=== PATIENT | male | born 1970 | race Caucasian/White ===

== ENCOUNTER → 2021-04-21 09:18 | Outpatient (CLI) | payer BC, SELFPAY ==
--- NOTE | ~2021-04-21 | US_ITS ---
EXAMINATION: US soft tissue chest EXAM DATE: 04/21/2021 10:11 INDICATION: Localized swelling, mass and lump, trunk . TECHNIQUE: Multiple grayscale and Doppler images of the symptomatic right posterolateral back region were obtained (by a technologist who performed the scan) and subsequently reviewed. Correlation is ma nguyễn to Right rib x-ray same date FINDINGS: Scanning in the right posterolateral back palpable abnormality demonstrates sonographically homogeneo us, normal-appearing skin, subcutaneous fat, underlying musculature. No fluid collection or mass iden tified. IMPRESSION: 1. Unremarkable ultrasound exam. Reviewed, dictated and finalized at location A.
--- NOTE | ~2021-04-21 | XR_ITS ---
[id number] DATE: 04/21/2021 10:02 INDICATION: Thoracic contusion TECHNIQUE: PA chest. 3 views of the right ribs. COMPARISON: None FINDINGS: No right rib fracture is detected. Normal heart size. No hilar or mediastinal enlargement. The lungs are clear of infiltrate or consolid ation. No pleural effusion or pulmonary vascular congestion or pneumothorax. IMPRESSION: Negative right ribs Reviewed, dictated and finalized at Location A. Reviewed, dictated and finalized at location B. IMPRESSION: Negative right ribs
== END ==
PROVIDERS: PCP Physician Assistant; Visit Provider Physician Assistant
DX: S20.20XA Contusion of thorax, unspecified, initial encounter (principal); X58.XXXA Exposure to other specified factors, initial encounter; R22.2 Localized swelling, mass and lump, trunk
CPT/HCPCS: 71101; 76604

== ENCOUNTER 2021-04-26 02:56 | Day surgery (SDC) | payer BC, SELFPAY ==
[2021-04-13 14:10] VITALS: BMI 27.0
--- NOTE | 2021-04-25 14:04 | P.PNAN_ITS ---
Anes - Initial Pre Proc Eval Procedure: Operation Date: 04/26/21 11:00 Proposed Procedures p Screening Colonoscopy - Baltazar Farias MD Date/Time: 04/25/21 14:05 Surgeon: Baltazar Farias MD Pre Op Diagnosis: neoplasm screening Patient Data Age: 50 Gender: M Height: 1.88 m Weight: 95.5 kg Allergies Allergy/AdvReac Type Severity Reaction Status Date / Time No Known Allergies Allergy Verified 04/26/21 10:02 Home Medications Medication Instructions Recorded Confirmed Type No Home Medications 04/13/21 04/13/21 History Patient hx anesthesia problems: none Family hx anesthesia problems: none Results Review: All pre-operative results and documents have been reviewed as part of the pre-operative evaluation. [facility] Social History Social History (Updated 04/26/21 @ 10:15 by Jesus Vásquez DO) Smoking packs per day: 1 Smoking cigarettes per day: 20.0 Years smoked: 25 Smoking pack-years: 25.00 Tobacco type: cigarettes Alcohol use details: 3-4 beers/day Substance use: current Substance use type: marijuana Other substance usage details: 1 or 2 times a day. Living arrangements: with family Spiritual care concerns: No Anes - Eval Final PreProcedure Day of Procedure 04/25/21 14:05 Patient weight: overweight Heart: regular rate and rhythm Lungs: clear to auscultation and normal air movement Airway: Mallampati scale class II Neurological: alert and oriented Last oral intake: >/= 8 hours ASA classification: III Emergent: no Anesthetic plan: proceed Anesthesia type and monitoring: general GIVS and standard monitoring Results Review: All pre-operative results and documents have been reviewed as part of the pre-operative evaluation. Informed Consent: The patient's anesthetic plan and its attendant risks and benefits were discussed with the patient/family/POA. Questions were solicited and answers provided to the satisfaction of the patient/family/POA.
[2021-04-26 10:03] VITALS: BP 136/88; PULSE 82; RESP 18; TEMP 36.8; O2SAT 100
[2021-04-26] MEDS: LACTATED RINGERS 1,000 ML 150 ML IV CONT (10:15)
--- NOTE | 2021-04-26 10:34 | P.HP_ITS ---
History of Present Illness History of Present Illness Consent: Risks, benefits, and alternatives have been discussed and questions answered. Patient agrees to proceed with procedure. Chief complaint: neoplasm screening Narrative: Waylon Graham is a 50 year old male here for first screening colonoscopy Review of Systems Constitutional: Constitutional: Denies headache(s) and Denies weakness Eyes: Eyes: Denies blurry vision ENT: Reports Normal hearing present, Denies headache(s) and Denies neck pain Cardiovascular: Cardiovascular: Denies chest pain and Denies dyspnea Respiratory: Respiratory: Denies dyspnea Gastrointestinal: Gastrointestinal: Reports no additional gastrointestinal complaints Genitourinary: Genitourinary: Denies dysuria Musculoskeletal: Musculoskeletal: Denies neck pain Integumentary/Breasts: Skin/Breast: Denies dry skin Neurologic: Reports Normal hearing present, Denies headache(s) and Denies weakness Psychiatric: Psychiatric: Denies anxiety Endocrine: Endocrine: Denies change in body appearance Hematologic/Lymphatic: Hematologic/Lymphatic: Denies easy bleeding Allergic/Immunologic: Allergic/Immunologic: Denies urticaria [facility] Past Medical History Medical History (Updated 04/26/21 @ 10:35 by Baltazar Farias MD) Colon cancer screening Social History Social History (Updated 04/26/21 @ 10:15 by Jesus Vásquez DO) Smoking packs per day: 1 Smoking cigarettes per day: 20.0 Years smoked: 25 Smoking pack-years: 25.00 Tobacco type: cigarettes Alcohol use details: 3-4 beers/day Substance use: current Substance use type: marijuana Other substance usage details: 1 or 2 times a day. Living arrangements: with family Spiritual care concerns: No Meds Home Medications and Allergies Home Medications Medication Instructions Recorded Confirmed Type No Home Medications 04/13/21 04/13/21 History Allergies Allergy/AdvReac Type Severity Reaction Status Date / Time No Known Allergies Allergy Verified 04/26/21 10:02 Vital Signs Vital Signs - 24 hr 04/26/21 10:03 Temperature 98.2 F Pulse Rate 82 Respiratory Rate 18 Blood Pressure 136/88 Pulse Oximetry 100 Exam Const: General: comfortable and no acute distress HENMT: General nose exam: Normal nares present Eyes: General: appearance normal, both eyes and all related structures Neck: Neck: no JVD Resp: Auscultation: clear to auscultation bilaterally Cardio: Rate: regular rate Rhythm: regular rhythm GI: Inspection: non-distended GI Palp: Yes Soft to palpation Skin: General skin exam: normal color Neuro: General: gait normal Speech: normal speech Extrem: General: normal to inspection Psych: Mental Status: mental status grossly normal Assessment and Plan Assessment and plan (1) Colon cancer screening: Code(s): Z12.11 - Encounter for screening for malignant neoplasm of colon Status: Acute Assessment and Plan: colonoscopy
[2021-04-26 10:59] VITALS: BP 121/85; PULSE 74; RESP 19; O2SAT 96
[2021-04-26 11:09] VITALS: BP 151/96; PULSE 70; RESP 16; O2SAT 100
[2021-04-26 11:19] VITALS: BP 165/98; PULSE 66; RESP 12; O2SAT 99
== END 2021-04-26 11:31 | disposition home or self-care (01) ==
PROVIDERS: PCP Physician Assistant; Visit Provider Internal Medicine Gastroenterology
PROC: 0DJD8ZZ Inspection of Lower Intestinal Tract, Via Natural or Artificial Opening Endoscopic (ICD-10-PCS; CPT 45378; principal; 2021-04-26 11:00)
DX: Z12.11 Encounter for screening for malignant neoplasm of colon (principal); K63.5 Polyp of colon; D12.2 Benign neoplasm of ascending colon; F17.210 Nicotine dependence, cigarettes, uncomplicated; F12.90 Cannabis use, unspecified, uncomplicated
CPT/HCPCS: 45385; 88305; J2001; J2704; J7120

== ENCOUNTER → 2021-05-24 07:46 | Outpatient (CLI) | payer BC, SELFPAY ==
--- NOTE | ~2021-05-24 | CT_ITS ---
EXAMINATION: CT lung screening EXAM DATE: 05/24/2021 08:17 INDICATION: Tobacco user. TECHNIQUE: Spiral low dose CT of the chest without contrast. Axial, coronal and sagittal images were reviewed. The dose-length product (DLP) for this examination was 143.12 mGy-cm. The exposure was t ailored according to patient size (auto mA exposure control), and iterative reconstruction (ASIR) was used as additional dose reduction technique. There is no prior study for comparison. FINDINGS: The lungs are clear. Mild emphysema. Tracheobronchial tree is patent. There is no medias tinal, hilar or axillary lymphadenopathy. There are no pleural or pericardial effusions. There is no pneumothorax. Heart normal in size. No evidence of coronary arterial calcification. Upper abd omen is unremarkable. There is thoracic spondylosis without osteoblastic or osteolytic lesions iden tified. IMPRESSION: Lung-RADS category 1, negative (<1%chance of malignancy); recommend continued LDCT screen ing in 1 year. > Reviewed, dictated and finalized at location A. IMPRESSION: Lung-RADS category 1, negative (<1%chance of malignancy); recommend continued LDCT screening in 1 year. >
== END ==
PROVIDERS: PCP Physician Assistant; Visit Provider Physician Assistant
DX: Z72.0 Tobacco use (principal)
CPT/HCPCS: 71271

== ENCOUNTER 2023-12-30 09:19 | Outpatient (CLI) | payer OTHER, SELFPAY ==
--- NOTE | ~2023-12-30 | US_ITS ---
Neck ULTRASOUND (Doppler ultrasound interrogation techniques used as needed for this exam.) Ordering provider: Mima Pelayo, FRANKIE History: . Cervical lymphadenopathy . Comparison: None. FINDINGS/impression: Multiple small lymph nodes are seen in both sides of the neck. The largest measures on the right side 1.7 cm and on the left 1.2 cm. Reviewed, dictated and finalized at location A.
--- NOTE | ~2023-12-30 | CT_ITS ---
CT sinus wo con Ordering provider: Mima Pelayo, PAVon History: . Congestion of nasal sinus . Comparison: None. Technique: Thin slice Scans CT of the paranasal sinuses was performed with coronal and sagittal refor matted images. No IV contrast. Radiation reduction technique utilized. Findings: NASAL SEPTUM: midline. OSTEOMEATAL UNITS: Bilaterally patent. NASAL TURBINATES AND NASOPHARYNX: Normal. PARANASAL SINUSES: Well aerated. VISUALIZED MASTOIDS: Minimal opacification anteriorly in the left mastoid air cells. Otherwise, Steff l as visualized. BONES: Normal. SUPERFICIAL SOFT TISSUES/VISUALIZED BRAIN PARENCHYMA: Rounded small soft tissue density seen anterior to the right maxillary sinus. Clinical evaluation advised. Otherwise,,Normal. IMPRESSION: No significant abnormality. Small rounded subcutaneous soft tissue density anterior to the right maxillary sinus. Reviewed, dictated and finalized at location A.
== END 2023-12-30 09:20 ==
LOC: MICIMG 09:22
PROVIDERS: PCP Physician Assistant; Visit Provider Physician Assistant
DX: R09.81 Nasal congestion (principal); R59.0 Localized enlarged lymph nodes
CPT/HCPCS: 70486; 76536

== ENCOUNTER 2024-01-20 08:17 | Outpatient (CLI) | payer OTHER, SELFPAY ==
--- NOTE | ~2024-01-20 | CT_ITS ---
EXAMINATION: CT soft tissue neck w con DATE: 01/20/2024 08:38 INDICATION: Cervical lymphadenopathy. TECHNIQUE: Computed tomography (CT) of the neck was performed with 75 mL Omnipaque-350 intravenous co ntrast. Automated exposure control and iterative reconstruction technique were employed. The dose-jacque gth product was 436.73 mGy-cm. COMPARISON: Ultrasound 12/30/2023 FINDINGS: There are no pathologically enlarged lymph nodes. There is mild plaque in the proximal righ t internal carotid artery. There is 0% stenosis of the proximal internal carotid arteries relative to normal distal artery lumen diameters. There is a 9 mm subcutaneous mass in the right cheek, likely a sebaceous cyst. There is mild cervical spondylosis. IMPRESSION: 1. No abnormal cervical lymphadenopathy. Reviewed, dictated and finalized at location A.
== END 2024-01-20 08:18 ==
LOC: MICIMG 08:19
PROVIDERS: PCP Physician Assistant; Visit Provider Physician Assistant
DX: R59.0 Localized enlarged lymph nodes (principal)
CPT/HCPCS: 70491; Q9967